=== PATIENT | female | born 1975 ===

== ENCOUNTER 2023-05-10 05:45 | Day surgery (SDC) | payer OTHER ==
[2023-05-10] MEDS ORDERED: NEXIUM 24HR20 MG PO (08:29)
== END 2023-05-10 09:35 | disposition home or self-care (01) ==
LOC: AMB-ENDOS 05:45
PROVIDERS: ATTEND Surgery
DX: K29.60 Other gastritis without bleeding (principal); K44.9 Diaphragmatic hernia without obstruction or gangrene; R10.13 Epigastric pain; E66.01 Morbid (severe) obesity due to excess calories; Z20.822 Contact with and (suspected) exposure to COVID-19